=== PATIENT | female | born 1990 | race American Indian/Alaskan Native ===

== ENCOUNTER 2018-04-26 20:25 | Emergency (ER) | payer BC ==
[2018-04-26 21:08] LABS: Hemoglobin 16.1 gm/dl (10.1-14.3); Mean Corpuscular HGB Conc 34 % (30-34); Mean Corpuscular Hemoglobin 29 pg (28-32); Mean Corpuscular Volume 85 fl (79-97); Platelet Count 229 K/mm3 (140-440); Red Blood Count 5.56 M/mm3 (3.65-5.03); Red Cell Distribution Width 13.3 % (13.2-15.2)
[2018-04-26 21:13] LABS: BUN/Creatinine Ratio 7; Blood Urea Nitrogen 5 mg/dL (7-17); Calcium 9.1 mg/dL (8.4-10.2); Hemolysis Index 25
[2018-04-26] MEDS ORDERED: TYLENOL ONE (22:08)
[2018-04-26] MEDS ORDERED: TYLENOL PO ONE (22:10)
[2018-04-26 23:09] LABS: Bilirubin,Urine NEG (Negative); Blood,Urine SM (Negative); Color,Urine Yellow (Yellow); Mucus,Urine 3+ /HPF; Urobilinogen,Urine < 2.0 mg/dL (<2.0)
[2018-04-27] MEDS ORDERED: MOTRIN PO ONE (00:52)
[2018-04-27] MEDS ORDERED: ZOFRAN IV ONE (00:59)
[2018-04-27] MEDS ORDERED: TORADOL IV ONE (00:59)
[2018-04-27] MEDS ORDERED: NACL 0.9% 1000 ML 2,000 ML IV ONE (00:59)
--- NOTE | 2018-04-27 01:00 | Emergency Department Report ---
- General Chief Complaint: Upper Respiratory Infection Stated Complaint: FLU BODY ACHE Time Seen by Provider: 04/27/18 00:50 Source: patient Mode of arrival: Ambulatory Limitations: No Limitations - History of Present Illness Initial Comments: When he 8-year-old female comes in reporting that she has a stuffy nose chills cough and generalized body aches and nausea vomiting and diarrhea 5 days. Patient reports that she's tried [id number] TheraFlu Robitussin garlic T and tracey tea but nothing has helped. Patient presented this been going on for about 5 days started on Sunday. To the decrease in appetite and admits to diffuse abdominal pain. Reports she takes no medications on a daily basis has no known drug allergies and currently has no past medical history. MD Complaint: nasal congestion, other (diffuse abdominal pain generalized body aches nausea vomiting diarrhea) -: days(s) (5) Severity scale (0 -10): 7 Quality: aching Consistency: constant Improves With: nothing - Related Data Previous Rx's Medication Instructions Recorded Last Taken Type Cetirizine HCl [ZyrTEC] 10 mg PO QDAY #30 capsule 04/27/18 Unknown Rx Fluticasone [Flonase] 1 spray NS QDAY #1 bottle 04/27/18 Unknown Rx Allergies Allergy/AdvReac Type Severity Reaction Status Date / Time No Known Allergies Allergy Verified 04/26/18 22:30 ED Review of Systems ROS: Stated complaint: FLU BODY ACHE Other details as noted in HPI Constitutional: chills ENT: congestion Respiratory: cough Gastrointestinal: abdominal pain, nausea, vomiting Neurological: headache ED Past Medical Hx - Past Medical History Previous Medical History?: No - Surgical History Past Surgical History?: No - Social History Smoking Status: Never Smoker Substance Use Type: Alcohol, Marijuana - Medications Home Medications: Home Medications Medication Instructions Recorded Confirmed Last Taken Type Cetirizine HCl [ZyrTEC] 10 mg PO QDAY #30 capsule 04/27/18 Unknown Rx Fluticasone [Flonase] 1 spray NS QDAY #1 bottle 04/27/18 Unknown Rx ED Physical Exam - General Limitations: No Limitations General appearance: alert, in no apparent distress - Eye Eye exam: Present: EOMI - ENT ENT exam: Present: mucous membranes dry - Respiratory Respiratory exam: Present: normal lung sounds bilaterally. Absent: respiratory distress - Cardiovascular Cardiovascular Exam: Present: bradycardia - GI/Abdominal GI/Abdominal exam: Present: soft, tenderness - Back Exam Back exam: Present: full ROM - Neurological Exam Neurological exam: Present: alert, oriented X3 - Psychiatric Psychiatric exam: Present: normal affect, normal mood - Skin Skin exam: Present: warm, dry, intact, normal color. Absent: rash ED Course Vital Signs 04/26/18 20:31 Temperature 98.6 F Pulse Rate 102 H Respiratory 16 Rate Blood Pressure 140/92 O2 Sat by Pulse 99 Oximetry - Reevaluation(s) Reevaluation #1: 04/27/18 02:14 Patient reports she feels much better after having fluids and antinausea medication. ED Medical Decision Making - Lab Data Result diagrams: 04/26/18 20:45 04/26/18 20:45 - Medical Decision Making Patient has been evaluated by this provider in fast track. IV, 2 L of normal saline, 4 mg of Zofran 15 mg of Toradol Urinalysis shows ketones and protein, H&H shows elevated hemoglobin and hematocrit patient's mildly tachycardic patient appears to be dehydrated Critical care attestation.: If time is entered above; I have spent that time in minutes in the direct care of this critically ill patient, excluding procedure time. ED Disposition Clinical Impression: Dehydration, Gastroenteritis and colitis, viral Allergic rhinitis Qualifiers: Allergic rhinitis trigger: unspecified Allergic rhinitis seasonality: unspecified Qualified Code(s): J30.9 - Allergic rhinitis, unspecified Disposition: DC-01 TO HOME OR SELFCARE Is pt being admited?: No Does the pt Need Aspirin: No Condition: Stable Instructions: Dehydration (ED), Gastroenteritis (ED), Allergic Rhinitis (ED) Additional Instructions: Please increase clear fluid intake by 2 L. Please take medication as prescribed please advance her diet as tolerated. If his symptoms persists please follow up with her primary care provider. Prescriptions: Cetirizine HCl [ZyrTEC] 10 mg PO QDAY #30 capsule Fluticasone [Flonase] 1 spray NS QDAY #1 bottle Referrals: PRIMARY CARE, [Primary Care Provider] - 3-5 Days [facility]Provider Group[facility] - 3-5 Days Forms: Work/School Release Form(ED), Accompanied Note
[2018-04-27 03:04] VITALS: BP 138/88
== END 2018-04-27 03:02 | disposition home or self-care (01) ==
LOC: ED 20:25
DX: E86.0 Dehydration (principal); K52.9 Noninfective gastroenteritis and colitis, unspecified; J30.9 Allergic rhinitis, unspecified
CPT/HCPCS: 36415; 80048; 81001; 84703; 85027; 96361; 96374; 96375; 99283; J1885; J2405; J7030

== ENCOUNTER 2019-02-12 17:20 | Outpatient (CLI) | payer OTHER | END 2019-02-12 17:50 | disposition left against medical advice (07) | LOC: TRG 17:20 | PROVIDERS: ATTEND Obstetrics & Gynecology | DX: O47.03 False labor before 37 completed weeks of gestation, third trimester (principal); Z3A.36 36 weeks gestation of pregnancy | CPT/HCPCS: 59025 ==

== ENCOUNTER 2019-03-01 03:01 | Inpatient (IN) | payer OTHER ==
[2019-03-01] MEDS ORDERED: ZOFRAN IV PRN ×2 (03:12→05:21)
[2019-03-01] MEDS ORDERED: BRETHINE SUB-Q PRN (03:12)
[2019-03-01] MEDS ORDERED: MINERAL OIL PO PRN (03:12)
[2019-03-01] MEDS ORDERED: SUBLIMAZE IV PRN (03:12)
[2019-03-01] MEDS ORDERED: NARCAN 0.4 MG/1 ML IV PRN (03:12)
[2019-03-01] MEDS ORDERED: AMPICILLIN/NS 2 GM/100 ML 2 GM/100 ML BAG IV ONE (03:12)
[2019-03-01] MEDS ORDERED: STADOL IV PRN (03:12)
[2019-03-01] MEDS ORDERED: XYLOCAINE 2% INFILTRATI ONE (03:12)
[2019-03-01] MEDS ORDERED: BRETHINE IVP PRN (03:12)
--- NOTE | 2019-03-01 03:18 | History and Physical Report ---
History of Present Illness Date of examination: 03/01/19 Date of admission: 03/01/19 03:09 Chief complaint: SROM @ 2:45 History of present illness: Pt is a 28yo BF EDC 03/09/19; EGA 38 6/7 weeks presents to L&D complaining of RUC's q 3-4 mins. She received late care at [facility] since 22 weeks and course has been unremarkable. records are available and GBS is Positive. Past History Past Medical History: no pertinent history Past Surgical History: no surgical history Social history: no significant social history, - Obstetrical History Expected Date of Delivery: 03/09/19 Actual Gestation: 38 Week(s) 6 Day(s) : 1 Medications and Allergies Allergies Allergy/AdvReac Type Severity Reaction Status Date / Time No Known Allergies Allergy Verified 02/12/19 17:32 Home Medications Medication Instructions Recorded Confirmed Last Taken Type Cetirizine HCl [ZyrTEC] 10 mg PO QDAY #30 capsule 04/27/18 02/12/19 Unknown Rx Fluticasone [Flonase] 1 spray NS QDAY #1 bottle 04/27/18 02/12/19 Unknown Rx Vit,Neal 74/Iron/Folic 1 each PO DAILY 02/12/19 02/12/19 02/11/19 21:00 History [ Low Iron Tablet] 1 Review of Systems All systems: negative - Vital Signs Vital signs: Vital Signs Pulse BP 81 121/56 03/01/19 03:11 03/01/19 03:11 Temp Pulse Resp BP Pulse Ox 81 121/56 03/01/19 03:11 03/01/19 03:11 - Physical Exam Breasts: Positive: deferred Cardiovascular: Regular rate Lungs: Positive: Clear to auscultation Abdomen: Positive: normal appearance Genitourinary (Female): Positive: normal external genitalia Vagina: Positive: normal moisture Uterus: Positive: enlarged Extremities: Positive: normal - Obstetrical FHR: category 1 Uterine Contraction Monitor Mode: External Cervical Dilatation: 5 (per nurse) Cervical Effacement Percentage: 70 (per nurse) Uterine Contraction Frequency (min): -1 Uterine Contraction Pattern: Regular Uterine Tone Measurement Phase: Contraction Uterine Contraction Intensity: Strong/Firm Results Result Diagrams: 03/01/19 03:30 All other labs normal. Assessment and Plan - Patient Problems (1) 38 weeks gestation of Onset Date: 03/01/19 Current Visit: Yes Status: Acute Plan to address problem: A: IUP @ 38 6/7 weeks in labor GBS Positive P: Admit to L&D for expectant vaginal delivery IV Ampicillin
[2019-03-01] MEDS ORDERED: PITOCin/NS 20 UNIT/1000ML DRIP 20 UNITS/1,000 ML BAG IV SCH ×2 (04:00→06:00)
[2019-03-01] MEDS ORDERED: PITOCin/NS 30 UNIT/500ML 30 UNITS/500 ML BAG IV SCH (04:00)
[2019-03-01] MEDS ORDERED: LACTATED RINGERS 1,000 ML IV SCH (04:00)
[2019-03-01 04:05] LABS: Hematocrit 41.8 % (30.3-42.9); Hemoglobin 14.1 gm/dl (10.1-14.3); Mean Corpuscular HGB Conc 34 % (30-34); Mean Corpuscular Volume 86 fl (79-97); Red Blood Count 4.86 M/mm3 (3.65-5.03); Red Cell Distribution Width 13.7 % (13.2-15.2)
[2019-03-01 05:15] LABS: Platelet Count 165 K/mm3 (140-440)
--- NOTE | 2019-03-01 05:20 | Procedure Note ---
OB Delivery Note - Delivery Date of Delivery: 03/01/19 Surgeon: ANGELICA MEJIA Estimated blood loss: 200cc - Vaginal Delivery presentation: vertex Delivery position: OA Intrapartum events: PROM->1hr before delivery, precipitous labor- <3hr Delivery induction: none Delivery augmentation: rupture of membranes Delivery monitor: external FHT, external uterine Route of delivery: Delivery placenta: spontaneous Delivery cord: nuchal cord, 3 umbilical vessels Delivery laceration: 2nd degree (perineal) Delivery repair: vicryl Anesthesia: local Delivery comments: delivered OA and placed on Mom's chest for [id number] bonding and delayed cord clamping, cut by Dad - A at 1 minute: 9 at 5 minutes: 9 Infant Gender: Female (2925gms)
[2019-03-01] MEDS ORDERED: LANSINOH TP PRN (05:21)
[2019-03-01] MEDS ORDERED: MILK OF MAGNESIA PO PRN (05:21)
[2019-03-01] MEDS ORDERED: BENADRYL PO PRN (05:21)
[2019-03-01] MEDS ORDERED: PHENERGAN PO PRN (05:21)
[2019-03-01] MEDS ORDERED: TUCKS PAD TP PRN (05:21)
[2019-03-01] MEDS ORDERED: PHENERGAN PR PRN (05:21)
[2019-03-01] MEDS ORDERED: TYLENOL PO PRN (05:21)
[2019-03-01] MEDS ORDERED: DERMOPLAST TP PRN (05:21)
[2019-03-01] MEDS ORDERED: NORCO 5/325 PO PRN (05:21)
[2019-03-01] MEDS ORDERED: DULCOLAX PR PRN (05:21)
[2019-03-01] MEDS ORDERED: SODIUM CHLORIDE FLUSH SYRINGE 10 ML IV PRN (06:00)
[2019-03-01] MEDS ORDERED: AMPICILLIN/NS 1 GM/50 ML 1 GM/50 ML BAG IV SCH (07:14)
[2019-03-01] MEDS: IBUPROFEN PO SCH ×3 (07:44→18:00)
[2019-03-01] MEDS: COLACE PO SCH ×2 (10:47→21:59)
[2019-03-01] MEDS: PRENATAL VITAMIN PO SCH (10:47)
[2019-03-01] MEDS: FEOSOL PO SCH ×2 (10:47→22:00)
[2019-03-01 16:13] LABS: Hematocrit 37.7 % (30.3-42.9); Hemoglobin 12.8 gm/dl (10.1-14.3)
[2019-03-02] MEDS: IBUPROFEN PO SCH ×3 (02:54→12:00)
[2019-03-02] MEDS ORDERED: M-M-R II VACCINE SUB-Q ONE (05:21)
[2019-03-02] MEDS ORDERED: BOOSTRIX IM ONE (06:00)
[2019-03-02] MEDS: FEOSOL PO SCH ×2 (11:30→21:09)
[2019-03-02] MEDS: PRENATAL VITAMIN PO SCH (11:30)
[2019-03-02] MEDS: COLACE PO SCH ×2 (11:32→21:09)
--- NOTE | 2019-03-02 11:52 | Progress Note ---
Assessment and Plan - Patient Problems (1) 38 weeks gestation of Onset Date: 03/01/19 Current Visit: Yes Status: Resolved (2) (normal spontaneous vaginal delivery) Onset Date: 03/02/19 Current Visit: Yes Status: Resolved Plan to address problem: A: S/P - PPD #1 Doing well P: May go home tomorrow. Subjective - Subjective Date of service: 03/02/19 Principal diagnosis: s/p - PPD #1 Interval history: Pt is feeling well without complaints. Bleeding improved. Patient reports: appetite normal, voiding normally, pain well controlled, flatus, ambulating normally, no dizzy ambulation, no nauseated : doing well, nursing well, bottle feeding Objective - Vital Signs Latest vital signs: Vital Signs Temp Pulse Resp BP Pulse Ox 03/02/19 08:27 98.4 F 79 16 120/63 98 03/02/19 00:09 97.8 F 80 20 128/61 99 03/01/19 17:47 98.5 F 74 16 113/64 100 03/01/19 12:44 98.0 F 84 16 118/71 100 Intake and Output 03/01/19 03/02/19 03/02/19 22:59 06:59 14:59 Intake Total 600 Balance 600 Intake: Oral 360 Intake, Free Water 240 Other: Total, Intake Amount 360 # Voids Void 1 - Exam Breasts: Present: deferred Cardiovascular: Present: Regular rate Abdomen: Present: normal appearance, soft Uterus: Present: normal, firm, fundal height below umbilicus Extremities: Present: normal - Labs Labs: Laboratory Tests 03/01/19 03/01/19 03/01/19 03:30 03:30 06:13 WBC 7.5 RBC 4.86 Hgb 14.1 Hct 41.8 MCV 86 MCH 29 MCHC 34 RDW 13.7 Plt Count 165 RPR Nonreactive Hep Bs Antigen Blood Type B POSITIVE Antibody Screen Negative 03/01/19 03/02/19 15:49 04:00 WBC RBC Hgb 12.8 Hct 37.7 MCV MCH MCHC RDW Plt Count RPR Hep Bs Antigen Non-reactive Blood Type Antibody Screen
--- NOTE | 2019-03-02 12:10 | Discharge Summary ---
Providers - Providers Date of Admission: 03/01/19 03:09 Date of discharge: 03/03/19 Attending physician: ANGELICA MEJIA Primary care physician: ANGELICA MEJIA Hospitalization Reason for admission: active labor, rupture of membranes, IUP at term Delivery: Episiotomy: none Laceration: 2nd degree Other procedures: none complications: none Discharge diagnosis: IUP at term delivered baby: female Hospital course: Unremarkable. Condition at discharge: Good Disposition: DC-01 TO HOME OR SELFCARE - Discharge Diagnoses (1) 38 weeks gestation of Status: Resolved (2) (normal spontaneous vaginal delivery) Status: Resolved Plan - Discharge Medications Prescriptions: Ibuprofen [Motrin 600 MG tab] 600 mg PO Q6H #30 tablet Vit-Fe Fumar-FA [ Vitamin] 1 each PO QDAY #30 tablet - Provider Discharge Summary Activity: routine, no sex for 6 weeks, no heavy lifting 4 weeks, no strenuous e xercise Diet: routine Instructions: routine Additional instructions: [] Smoking cessation referral if applicable(refer to patient education folder for contact #) [] Refer to [facility]'s [facility] Booklet Call your doctor immediately for: * Fever > 100.5 * Heavy vaginal bleeding ( >1 pad per hour) * Severe persistent headache * Shortness of breath * Reddened, hot, painful area to leg or breast * Drainage or odor from incision. * Keep incision clean and dry at all times and follow doctor's instructions regarding bathing/showering - Follow up plan Follow up: ANGELICA MEJIA MD [Primary Care Provider] - 6 Weeks LANG BOSWELL NP [Referring] - 6 Weeks
[2019-03-03] MEDS: IBUPROFEN PO SCH ×2 (00:59→12:00)
[2019-03-03] MEDS: COLACE PO SCH (09:51)
[2019-03-03] MEDS: PRENATAL VITAMIN PO SCH (10:00)
[2019-03-03] MEDS: FEOSOL PO SCH (10:00)
[2019-03-03 17:09] VITALS: BP 121/75
== END 2019-03-03 17:00 | disposition home or self-care (01) | DRG 807 ==
LOC: TRG 03:01 → LD 03:09 → OB 08:20
PROVIDERS: ADMIT Obstetrics & Gynecology; ATTEND Obstetrics & Gynecology
PROC: 10E0XZZ Delivery of Products of Conception, External Approach (ICD-10-PCS; principal; 2019-03-01)
PROC: 0KQM0ZZ Repair Perineum Muscle, Open Approach (ICD-10-PCS; 2019-03-01)
PROC: 3E0234Z Introduction of Serum, Toxoid and Vaccine into Muscle, Percutaneous Approach (ICD-10-PCS; 2019-03-02)
DX: O99.824 Streptococcus B carrier state complicating childbirth (principal); Z37.0 Single live birth; Z3A.38 38 weeks gestation of pregnancy; O62.3 Precipitate labor; O42.92 Full-term premature rupture of membranes, unspecified as to length of time between rupture and onset of labor; O69.81X0 Labor and delivery complicated by cord around neck, without compression, not applicable or unspecified; O70.1 Second degree perineal laceration during delivery; Z23 Encounter for immunization
CPT/HCPCS: 36415; 85014; 85018; 85027; 86592; 86706; 86850; 86900; 86901; 90707; G0378; A6250; J0290; J2590; J7120